=== PATIENT | female | born 1980 | race Caucasian/White ===

== ENCOUNTER 2016-10-18 15:33 | Emergency (ER) | payer OTHER ==
[~2016-10-18] VITALS: Ht 154.9 cm; Wt 81.6 kg
[2016-10-18] MEDS ORDERED: IV NORMAL SALINE 1,000ML 1,000 ML IV ONE (16:10)
[2016-10-18 16:51] LABS: BASO % 0 % (0-3); EOS # 0.1 x10^3/uL (0.0-0.7); EOS % 1 % (0-3); HEMATOCRIT 41.3 % (36.0-47.0); HEMOGLOBIN 14.3 g/dL (12.0-15.5); LYMPH # 2.8 x10^3/uL (1.0-4.8); LYMPH % 44 % (24-48); MEAN CORPUSCULAR HEMOGLOBIN 32 pg (25-35); MEAN CORPUSCULAR HGB CONC 35 g/dL (31-37); MEAN CORPUSCULAR VOLUME 91 fL (79-100); MONO # 0.5 x10^3/uL (0.0-1.1); MONO % 7 % (0-9); NEUT # 3.1 x10^3uL (1.8-7.7); NEUT % 48 % (31-73); PLATELET COUNT 196 x10^3/uL (140-400); RED BLOOD COUNT 4.56 x10^6/uL (3.50-5.40); RED CELL DISTRIBUTION WIDTH 14.3 % (11.5-14.5); WHITE BLOOD COUNT 6.5 x10^3/uL (4.0-11.0)
[2016-10-18 17:00] LABS: ALBUMIN/GLOBULIN RATIO 1.3 (1.0-1.7); CALCIUM 8.7 mg/dL (8.5-10.1); CREATININE 0.7 mg/dL (0.6-1.0); GFR 95.8; POTASSIUM 3.6 mmol/L (3.5-5.1); TOTAL BILIRUBIN 0.6 mg/dL (0.2-1.0); TOTAL PROTEIN 7.2 g/dL (6.4-8.2)
[2016-10-18] MEDS ORDERED: LORazepam 2 MG/ML VIAL IV ONE (17:00)
--- NOTE | 2016-10-18 17:13 | EKG ---
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
--- NOTE | 2016-10-18 17:54 | ED.ADGEN ---
Past History Past Medical History: Anxiety Past Surgical History: Tubal ligation Smoking: Non-smoker Alcohol Use: None Drug Use: None Adult General Chief Complaint Chief Complaint Chest pain and anxiety hyperventilation HPI HPI Patient is a 36 year old female who presents with onset of some vague chest discomfort substernal does not radiate to the arm or leg she was hyperventilating and had some numbness in her legs this was sudden onset just prior to arrival she said she's had this numerous times to always been her anxiety but she was concerned so came in anyways. At this time she is much more calm but is still slightly anxious she denies any pain or swelling to her legs no prior history of DVT or PE. No prior workup or evaluation for heart Review of Systems Review of Systems Constitutional: Denies fever or chills [] Eyes: Denies change in visual acuity, redness, or eye pain [] HENT: Denies nasal congestion or sore throat [] Respiratory: Denies cough or shortness of breath [] Cardiovascular: No additional information not addressed in HPI [] GI: Denies abdominal pain, nausea, vomiting, bloody stools or diarrhea [] : Denies dysuria or hematuria [] Musculoskeletal: Denies back pain or joint pain [] Integument: Denies rash or skin lesions [] Neurologic: Denies headache, focal weakness or sensory changes [] Endocrine: Denies polyuria or polydipsia [] Current Medications Current Medications Current Medications Medications (Trade) Dose Ordered Sig/Billy Start Time Stop Time Status Last Admin Dose Admin Lorazepam (Ativan) 1 mg 1X ONCE 10/18/16 17:00 10/18/16 17:01 DC 10/18/16 17:00 1 MG Sodium Chloride 1,000 ml @ 1,000 mls/hr 1X ONCE 10/18/16 16:10 10/18/16 17:09 DC 10/18/16 16:00 1,000 MLS/HR Allergies Allergies Allergies Coded Allergies Type Severity Reaction Last Updated Verified No Known Drug Allergies 10/18/16 No Physical Exam Physical Exam Constitutional: Well developed, well nourished, no acute distress, non-toxic appearance. [] HENT: Normocephalic, atraumatic, bilateral external ears normal, oropharynx moist, no oral exudates, nose normal. [] Eyes: PERRLA, EOMI, conjunctiva normal, no discharge. [] Neck: Normal range of motion, no tenderness, supple, no stridor. [] Cardiovascular:Heart rate regular rhythm, no murmur [] Lungs & Thorax: Bilateral breath sounds clear to auscultation [] Abdomen: Bowel sounds normal, soft, no tenderness, no masses, no pulsatile masses. [] Skin: Warm, dry, no erythema, no rash. [] Back: No tenderness, no CVA tenderness. [] Extremities: No tenderness, no cyanosis, no clubbing, ROM intact, no edema. [] Neurologic: Alert and oriented X 3, normal motor function, normal sensory function, no focal deficits noted. [] Psychologic: Affect normal, judgement normal, mood normal. [] Current Patient Data Lab Results Laboratory Tests Test 10/18/16 16:00 White Blood Count 6.5 x10^3/uL (4.0-11.0) Red Blood Count 4.56 x10^6/uL (3.50-5.40) Hemoglobin 14.3 g/dL (12.0-15.5) Hematocrit 41.3 % (36.0-47.0) Mean Corpuscular Volume 91 fL (79-100) Mean Corpuscular Hemoglobin 32 pg (25-35) Mean Corpuscular Hemoglobin Concent 35 g/dL (31-37) Red Cell Distribution Width 14.3 % (11.5-14.5) Platelet Count 196 x10^3/uL (140-400) Neutrophils (%) (Auto) 48 % (31-73) Lymphocytes (%) (Auto) 44 % (24-48) Monocytes (%) (Auto) 7 % (0-9) Eosinophils (%) (Auto) 1 % (0-3) Basophils (%) (Auto) 0 % (0-3) Neutrophils # (Auto) 3.1 x10^3uL (1.8-7.7) Lymphocytes # (Auto) 2.8 x10^3/uL (1.0-4.8) Monocytes # (Auto) 0.5 x10^3/uL (0.0-1.1) Eosinophils # (Auto) 0.1 x10^3/uL (0.0-0.7) Basophils # (Auto) 0.0 x10^3/uL (0.0-0.2) D-Dimer (Jessie) 0.46 mg/L (0.00-0.50) Sodium Level 137 mmol/L (136-145) Potassium Level 3.6 mmol/L (3.5-5.1) Chloride Level 104 mmol/L (98-107) Carbon Dioxide Level 22 mmol/L (21-32) Anion Gap 11 (6-14) Blood Urea Nitrogen 10 mg/dL (7-20) Creatinine 0.7 mg/dL (0.6-1.0) Estimated GFR (Cockcroft-Gault) 95.8 BUN/Creatinine Ratio 14 (6-20) Glucose Level 89 mg/dL (70-99) Calcium Level 8.7 mg/dL (8.5-10.1) Total Bilirubin 0.6 mg/dL (0.2-1.0) Aspartate Amino Transferase (AST) 17 U/L (15-37) Alanine Aminotransferase (ALT) 21 U/L (14-59) Alkaline Phosphatase 80 U/L (46-116) Troponin I Quantitative < 0.017 ng/mL (0-0.055) Total Protein 7.2 g/dL (6.4-8.2) Albumin 4.0 g/dL (3.4-5.0) Albumin/Globulin Ratio 1.3 (1.0-1.7) EKG EKG Sinus rhythm rate of 59 no STEMI QTC normal my interpretation at 1651 [] Radiology/Procedures Radiology/Procedures Chest x-ray negative my interpretation and review [] Course & Med Decision Making Course & Med Decision Making Pertinent Labs and Imaging studies reviewed. (See chart for details) Patient was given IV fluids and Ativan and feels improved. [] Final Impression Final Impression Nonspecific chest pain, anxiety [] Problems: Dragon Disclaimer Dragon Disclaimer This electronic medical record was generated, in whole or in part, using a voice recognition dictation system. MITRA SANCHEZ MD Oct 18, 2016 17:54
[2016-10-18 18:30] VITALS: BP 153/107
--- NOTE | 2016-10-19 08:03 | RAD ---
Portable chest, 10/18/2016: History: Left-sided chest pain, smoker The heart size and pulmonary vascularity are normal. No pulmonary infiltrates are seen. There is no evidence of pleural fluid. IMPRESSION: No acute cardiopulmonary abnormality is detected.
== END 2016-10-18 18:35 | disposition home or self-care (01) ==
LOC: ER 15:33
DX: R07.89 Other chest pain (principal); F41.9 Anxiety disorder, unspecified; R06.4 Hyperventilation
CPT/HCPCS: 36415; 71010; 80053; 84484; 85027; 85379; 93005; 96361; 96374; 99285; J2060; J7030

== ENCOUNTER 2017-09-01 17:56 | Emergency (ER) | payer SELFPAY ==
[~2017-09-01] VITALS: Ht 154.9 cm; Wt 81.6 kg
--- NOTE | 2017-09-01 18:20 | EKG ---
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
--- NOTE | 2017-09-01 18:26 | ED.ADGEN ---
Past History Past Medical History: Anxiety Past Surgical History: Tubal ligation Smoking: Non-smoker Alcohol Use: None Drug Use: None Adult General Chief Complaint Chief Complaint ". I having maybe a anxiety attack.. I worried.. I may be having a heart attack.. I am having chest pain.. " HPI HPI Patient is a 37 year old female who presents with history of pleuritic chest pain, increased dyspnea, wheezing and cough. Patient denies any specific ill contacts. Patient denies any history of immunosuppression. Patient denies any productive sputum. Patient does have a history of hypertension. Patient denies previous MIs. Patient does continue to smoke. Patient [facility]. Patient has not been compliant with her hypertensive meds. Review of Systems Review of Systems Constitutional: Denies fever or chills [] Eyes: Denies change in visual acuity, redness, or eye pain [] HENT: Denies nasal congestion or sore throat [] Respiratory: Complaints cough or shortness of breath [] Cardiovascular: No additional information not addressed in HPI [] GI: Denies abdominal pain, nausea, vomiting, bloody stools or diarrhea [] : Denies dysuria or hematuria [] Musculoskeletal: Denies back pain or joint pain [] Integument: Denies rash or skin lesions [] Neurologic: Denies headache, focal weakness or sensory changes [] Endocrine: Denies polyuria or polydipsia [] All other systems were reviewed and found to be within normal limits, except as documented in this note. Family History Family History Noncontributory Current Medications Current Medications Current Medications Medications (Trade) Dose Ordered Sig/Billy Start Time Stop Time Status Last Admin Dose Admin Albuterol Sulfate (Ventolin Hfa) 2 puff 1X ONCE 09/02/17 01:00 09/02/17 01:01 DC 09/02/17 00:58 2 PUFF Cephalexin HCl (Keflex) 500 mg 1X ONCE 09/02/17 01:00 09/02/17 01:01 DC 09/02/17 01:00 500 MG Clonidine HCl (Catapres Tts-2) 1 patch 1X ONCE 09/02/17 01:00 09/02/17 01:01 DC 09/02/17 00:59 1 PATCH Info (Do NOT chart on this entry -- for MONITORING) 1 each PRN DAILY PRN 09/01/17 21:30 09/02/17 01:12 DC Iohexol (Omnipaque 300 Mg/ml) 75 ml 1X ONCE 09/01/17 21:30 09/01/17 21:31 DC 09/01/17 22:05 75 ML Lactated Ringer's 1,000 ml @ 1,000 mls/hr 1X ONCE 09/01/17 21:00 09/01/17 21:59 DC Lorazepam (Ativan) 2 mg 1X ONCE 09/01/17 22:00 09/01/17 22:01 DC 09/01/17 22:22 2 MG Prednisone (Prednisone) 50 mg 1X ONCE 09/02/17 01:00 09/02/17 01:01 DC 09/02/17 00:59 50 MG Allergies Allergies Allergies Coded Allergies Type Severity Reaction Last Updated Verified No Known Drug Allergies 10/18/16 No Physical Exam Physical Exam Constitutional: In acute emotional distress distress, non-toxic appearance. [] HENT: Normocephalic, atraumatic, bilateral external ears normal, oropharynx moist, no oral exudates, nose normal. [] Eyes: PERRLA, EOMI, conjunctiva normal, no discharge. [] Neck: Normal range of motion, no tenderness, supple, no stridor. [] Cardiovascular:Heart rate regular rhythm, no murmur [] Lungs & Thorax: Bilateral breath sounds equal with scattered wheezes on auscultation [] Abdomen: Bowel sounds normal, soft, no tenderness, no masses, no pulsatile masses. [] Old surgery scar. Obese. Skin: Warm, dry, no erythema, no rash. [] Back: No tenderness, no CVA tenderness. [] Extremities: No tenderness, no cyanosis, no clubbing, ROM intact, no edema. [] No cording noted Neurologic: Alert and oriented X 3, normal motor function, normal sensory function, no focal deficits noted. [] Psychologic: Affect very anxious, judgement normal, mood normal. [] Current Patient Data Vital Signs Vital Signs Date Time Temp Pulse Resp B/P (MAP) Pulse Ox O2 Delivery O2 Flow Rate FiO2 09/02/17 01:10 93 20 164/108 (126) 98 Room Air 09/01/17 18:03 98.3 Lab Results Laboratory Tests Test 09/01/17 18:52 09/01/17 21:00 White Blood Count 4.2 x10^3/uL (4.0-11.0) Red Blood Count 4.26 x10^6/uL (3.50-5.40) Hemoglobin 13.1 g/dL (12.0-15.5) Hematocrit 38.0 % (36.0-47.0) Mean Corpuscular Volume 89 fL (79-100) Mean Corpuscular Hemoglobin 31 pg (25-35) Mean Corpuscular Hemoglobin Concent 35 g/dL (31-37) Red Cell Distribution Width 13.9 % (11.5-14.5) Platelet Count 201 x10^3/uL (140-400) Neutrophils (%) (Auto) 51 % (31-73) Lymphocytes (%) (Auto) 38 % (24-48) Monocytes (%) (Auto) 9 % (0-9) Eosinophils (%) (Auto) 1 % (0-3) Basophils (%) (Auto) 0 % (0-3) Neutrophils # (Auto) 2.2 x10^3uL (1.8-7.7) Lymphocytes # (Auto) 1.6 x10^3/uL (1.0-4.8) Monocytes # (Auto) 0.4 x10^3/uL (0.0-1.1) Eosinophils # (Auto) 0.0 x10^3/uL (0.0-0.7) Basophils # (Auto) 0.0 x10^3/uL (0.0-0.2) Prothrombin Time 11.2 SEC (9.4-11.4) Prothrombin Time INR 1.1 (0.9-1.1) PTT 28 SEC (23-33) D-Dimer (Jessie) 0.52 mg/L (0.00-0.50) H Sodium Level 140 mmol/L (136-145) Potassium Level 3.4 mmol/L (3.5-5.1) L Chloride Level 105 mmol/L (98-107) Carbon Dioxide Level 25 mmol/L (21-32) Anion Gap 10 (6-14) Blood Urea Nitrogen 9 mg/dL (7-20) Creatinine 0.8 mg/dL (0.6-1.0) Estimated GFR (Cockcroft-Gault) 81.6 Glucose Level 89 mg/dL (70-99) Calcium Level 8.8 mg/dL (8.5-10.1) Total Bilirubin 0.4 mg/dL (0.2-1.0) Direct Bilirubin 0.1 mg/dL (0.0-0.2) Aspartate Amino Transferase (AST) 12 U/L (15-37) L Alanine Aminotransferase (ALT) 18 U/L (14-59) Alkaline Phosphatase 59 U/L (46-116) Creatine Kinase 77 U/L (26-192) Creatine Kinase MB (Mass) 0.5 ng/mL (0.0-3.6) Creatine Kinase MB Relative Index 0.6 % (0-4) Troponin I Quantitative < 0.017 ng/mL (0-0.055) Total Protein 6.9 g/dL (6.4-8.2) Albumin 3.9 g/dL (3.4-5.0) Urine Collection Type Unknown Urine Color Straw Urine Clarity Clear Urine pH 7.5 Urine Specific [place] 1.015 Urine Protein Neg (NEG-TRACE) Urine Glucose (UA) Neg mg/dL (NEG) Urine Ketones (Stick) 40 mg/dL (NEG) Urine Blood Mod (NEG) Urine Nitrite Neg (NEG) Urine Bilirubin Neg (NEG) Urine Urobilinogen Dipstick 0.2 mg/dL (0.2 mg/dL) Urine Leukocyte Esterase Neg (NEG) Urine RBC Occ /HPF (0-2) Urine WBC Occ /HPF (0-4) Urine Squamous Epithelial Cells Occ /LPF Urine Bacteria 0 /HPF (0-FEW) Urine Opiates Screen Neg (NEG) Urine Methadone Screen Neg (NEG) Urine Barbiturates Neg (NEG) Urine Phencyclidine Screen Neg (NEG) Urine Amphetamine/Methamphetamine Neg (NEG) Urine Benzodiazepines Screen Pos (NEG) Urine Cocaine Screen Neg (NEG) Urine Cannabinoids Screen Pos (NEG) Urine Ethyl Alcohol Neg (NEG) EKG EKG My interpretation EKG shows a sinus rhythm at 79 bpm. No findings of acute STEMI with contralateral changes[] Radiology/Procedures Radiology/Procedures My interpretation chest x-ray shows no acute cardiopulmonary findings. Does have somewhat enlarged cardiac silhouette. CT chest shows no significant large vessel pulmonary embolism. Does have peribronchial cuffing consistent with bronchitis.[] Course & Med Decision Making Course & Med Decision Making Pertinent Labs and Imaging studies reviewed. (See chart for details). Patient take a daily aspirin. Patient to stop smoking. Patient to follow-up primary care. Patient take Keflex 500 mg 3 times a day. Prednisone 50 mg a day. MDI 2 puffs 4 times a day. Return if any concerns. Patient to take metoprolol 25 mg twice day. Must follow-up. [] Final Impression Final Impression 1. Chest Pain 2. Bronchitis 3. Tobacco and marijuana abuse 4. HTN 5. Elevated D-dimer [] Problems: Dragon Disclaimer Dragon Disclaimer This electronic medical record was generated, in whole or in part, using a voice recognition dictation system. FANY COLÓN MD Sep 01, 2017 18:26
[2017-09-01] MEDS ORDERED: IV RINGERS SOLUTION,LACTATED 1,000 ML IV SCH (19:00)
[2017-09-01 19:22] LABS: BASO % 0 % (0-3); EOS % 1 % (0-3); HEMOGLOBIN 13.1 g/dL (12.0-15.5); LYMPH # 1.6 x10^3/uL (1.0-4.8); LYMPH % 38 % (24-48); MEAN CORPUSCULAR HEMOGLOBIN 31 pg (25-35); MEAN CORPUSCULAR HGB CONC 35 g/dL (31-37); MEAN CORPUSCULAR VOLUME 89 fL (79-100); MONO # 0.4 x10^3/uL (0.0-1.1); MONO % 9 % (0-9); NEUT # 2.2 x10^3uL (1.8-7.7); NEUT % 51 % (31-73); PLATELET COUNT 201 x10^3/uL (140-400); RED BLOOD COUNT 4.26 x10^6/uL (3.50-5.40); RED CELL DISTRIBUTION WIDTH 13.9 % (11.5-14.5); WHITE BLOOD COUNT 4.2 x10^3/uL (4.0-11.0)
[2017-09-01 19:49] LABS: ALBUMIN 3.9 g/dL (3.4-5.0); CALCIUM 8.8 mg/dL (8.5-10.1); CREATININE 0.8 mg/dL (0.6-1.0); DIRECT BILIRUBIN 0.1 mg/dL (0.0-0.2); GFR 81.6; POTASSIUM 3.4 mmol/L (3.5-5.1); TOTAL BILIRUBIN 0.4 mg/dL (0.2-1.0); TOTAL PROTEIN 6.9 g/dL (6.4-8.2)
[2017-09-01] MEDS ORDERED: IV RINGERS SOLUTION,LACTATED 1,000 ML IV ONE (21:00)
[2017-09-01 21:25] LABS: BARBITURATES NEG (NEG); BENZODIAZEPINES POS (NEG); CANNABINOIDS POS (NEG); COCAINE NEG (NEG); METHADONE NEG (NEG); OPIATES NEG (NEG); PHENCYCLIDINE NEG (NEG)
[2017-09-01] MEDS ORDERED: IOHEXOL 300 MG/ML 75 ML VIAL. IV ONE (21:30)
[2017-09-01] MEDS ORDERED: CONTRAST GIVEN MC PRN (21:30)
[2017-09-01 21:33] LABS: BACTERIA,URINE 0 /HPF (0-FEW); BILIRUBIN,URINE NEG (NEG); CLARITY,URINE CLEAR; COLOR,URINE STRAW; GLUCOSE,URINE NEG (NEG); NITRITE,URINE NEG (NEG); RBC,URINE OCC /HPF (0-2); SQUAMOUS EPITHELIAL CELL,UR OCC /LPF; UROBILINOGEN,URINE 0.2 mg/dL (0.2 mg/dL); WBC,URINE OCC /HPF (0-4)
[2017-09-01 21:54] LABS: AMPHETAMINE/METHAMPHETAMINE NEG (NEG)
[2017-09-01] MEDS ORDERED: LORazepam 1 MG TABLET PO ONE (22:00)
--- NOTE | 2017-09-01 22:38 | RAD ---
CT CHEST WITH CONTRAST, PULMONARY ANGIOGRAM History: Chest pain, dyspnea, elevated d-dimer Comparison: Chest radiograph same day Technique: Helical CT of the chest was performed after the administration of 75 cc of Omnipaque 300 intravenous contrast according to PE protocol. Sagittal and coronal MIP reconstructions were obtained. Findings: Limited evaluation of the distal pulmonary arterial system due to suboptimal distal contrast opacification. No evidence of central, lobar or segmental pulmonary embolism. The thyroid is symmetric. Prominent mediastinal and right hilar lymph nodes do not meet CT criteria for enlargement. No axillary adenopathy. Ascending thoracic aorta dilatation measuring up to 4.1 cm. Mild cardiomegaly. There is no pericardial effusion. The central airways are patent. There is no suspicious pulmonary nodule or mass. There is no focal consolidation. No pleural effusion is observed. There is no pneumothorax. Mild peribronchial thickening. The visualized upper abdomen is unremarkable. No acute osseous abnormality. IMPRESSION: 1. Limited evaluation of the distal pulmonary arterial system due to suboptimal distal contrast opacification. No evidence of central, lobar or segmental pulmonary embolism. 2. Ascending aortic dilatation measuring up to 4.1 cm. 3. Mild cardiomegaly. 4. Mild peribronchial thickening, a nonspecific finding which can be seen with bronchitis. PQRS Compliance Statement: One or more of the following individualized dose reduction techniques were utilized for this examination: 1. Automated exposure control 2. Adjustment of the mA and/or kV according to patient size 3. Use of iterative reconstruction technique Electronically signed by: Khalif Hughes MD (09/01/2017 10:35 PM) [facility]
[2017-09-02] MEDS ORDERED: PRED50TA PO (00:35)
[2017-09-02] MEDS ORDERED: CEPH-264 PO (00:35)
[2017-09-02] MEDS ORDERED: METO50TA6 PO (00:41)
[2017-09-02] MEDS ORDERED: CEPHALEXIN 250 MG CAPSULE PO ONE (01:00)
[2017-09-02] MEDS ORDERED: ALBUTEROL SULFATE 8GM INHALER. INH ONE (01:00)
[2017-09-02] MEDS ORDERED: cloNIDine TTS-2 1 PATCH PATCH TD ONE (01:00)
[2017-09-02] MEDS ORDERED: predniSONE 20 MG TABLET PO ONE (01:00)
[2017-09-02 01:10] VITALS: BP 164/108
--- NOTE | 2017-09-02 09:25 | RAD ---
CHEST PA LATERAL Clinical Indication: dyspnea, tachycardia, history of panic attacks/anxiety Comparison: Chest radiograph dated 10/18/2016 Findings: Normal lung volume. No focal consolidations. Normal pulmonary vasculature. No pleural effusion or pneumothorax. The cardiomediastinal silhouette and great vessels are normal. No acute osseous abnormality. IMPRESSION: No acute cardiopulmonary process.
== END 2017-09-02 01:10 | disposition home or self-care (01) ==
LOC: ER 17:56
DX: J40 Bronchitis, not specified as acute or chronic (principal); R07.81 Pleurodynia; I10 Essential (primary) hypertension; F12.10 Cannabis abuse, uncomplicated; R79.1 Abnormal coagulation profile; Z72.0 Tobacco use; F41.9 Anxiety disorder, unspecified
CPT/HCPCS: 36415; 71046; 71275; 80048; 80076; 80307; 81001; 82553; 84484; 85025; 85379; 85610; 85730; 93005; 94640; 99285; J7120; J7512; J7613; Q9967; G0479

== ENCOUNTER → 2019-02-12 | Outpatient (CLI) | payer OTHER ==
[~2019-02-12] MED LIST: CEPH-264 PO; METO50TA6 PO; PRED50TA PO
--- NOTE | 2019-02-12 10:56 | RAD ---
EXAM: Lumbar spine, 6 views. HISTORY: Pain. COMPARISON: None. FINDINGS: Frontal, lateral, bilateral oblique, and coned sacral views of the lumbar spine are obtained. There is no listhesis. The vertebral bodies are normal in height. There is degenerative endplate remodeling with disc space narrowing and vacuum phenomenon at L5-S1. IMPRESSION: 1. Degenerative change at L5-S1. 2. No acute osseous finding. Electronically signed by: Poornima Trevino MD (02/12/2019 10:52 AM) [facility]
== END | disposition home or self-care (01) ==
LOC: PMG 10:09
PROVIDERS: ATTEND Registered Nurse
DX: M47.897 Other spondylosis, lumbosacral region (principal); M48.07 Spinal stenosis, lumbosacral region
CPT/HCPCS: 72110

== ENCOUNTER → 2019-02-18 | Outpatient (CLI) | payer OTHER ==
[2019-02-18 09:28] LABS: BACTERIA,URINE FEW /HPF (0-FEW); BILIRUBIN,URINE NEG (NEG); CLARITY,URINE HAZY; COLOR,URINE YELLOW; GLUCOSE,URINE NEG (NEG); NITRITE,URINE NEG (NEG); SQUAMOUS EPITHELIAL CELL,UR MOD /LPF; UROBILINOGEN,URINE 0.2 mg/dL (0.2 mg/dL)
[2019-02-18 10:05] LABS: BASO % 1 % (0-3); EOS # 0.2 x10^3/uL (0.0-0.7); EOS % 2 % (0-3); HEMATOCRIT 40.3 % (36.0-47.0); HEMOGLOBIN 13.5 g/dL (12.0-15.5); LYMPH # 2.5 x10^3/uL (1.0-4.8); LYMPH % 35 % (24-48); MEAN CORPUSCULAR HEMOGLOBIN 31 pg (25-35); MEAN CORPUSCULAR HGB CONC 34 g/dL (31-37); MEAN CORPUSCULAR VOLUME 91 fL (79-100); MONO # 0.4 x10^3/uL (0.0-1.1); MONO % 6 % (0-9); NEUT # 3.9 x10^3uL (1.8-7.7); NEUT % 55 % (31-73); PLATELET COUNT 216 x10^3/uL (140-400); RED BLOOD COUNT 4.44 x10^6/uL (3.50-5.40); WHITE BLOOD COUNT 7.1 x10^3/uL (4.0-11.0)
[2019-02-18 10:18] LABS: ALBUMIN 3.7 g/dL (3.4-5.0); ALBUMIN/GLOBULIN RATIO 1.2 (1.0-1.7); CALCIUM 8.8 mg/dL (8.5-10.1); CREATININE 0.8 mg/dL (0.6-1.0); GFR 81.2; POTASSIUM 4.3 mmol/L (3.5-5.1); TOTAL BILIRUBIN 0.2 mg/dL (0.2-1.0); TOTAL PROTEIN 6.9 g/dL (6.4-8.2)
[2019-02-18 14:08] LABS: FREE T4 0.79 ng/dL (0.76-1.46); THYROID STIM HORMONE (TSH) 5.756 uIU/mL (0.358-3.740)
--- NOTE | 2019-02-18 17:04 | RAD ---
Sonography of the neck Clinical indications: Multiple lumps of the left side of the neck for months. FINDINGS: High-resolution sonography of the left side neck was performed which demonstrates multiple lymph nodes which demonstrate normal lymph node sonographic architecture at this point in time. The largest lymph node measures 14 mm within the lateral aspect of the left side of the neck. IMPRESSION: Lymph nodes are seen within the left side of the neck which demonstrate normal lymph node sonographic architecture. Recommend continued clinical follow-up with regard to any growth in size. Electronically signed by: Sami Goins MD (02/18/2019 5:02 PM) [place] [id number]
--- NOTE | 2019-02-18 17:08 | RAD ---
Clinical indications: New onset of uncontrolled hypertension. Smoker. Frequent urinary tract infections.. Renal artery stenosis. Evaluation for renal scarring/atrophy. . Findings: Duplex sonography including torres scale and color flow and spectral waveform analysis of the renal arteries and veins was performed. The peak systolic flow velocity of the right main renal artery is: Proximal: 76cm/sec Mid aspect: 118 cm/sec Distal: 164 cm/sec The peak systolic flow velocity of the left main renal artery is: Proximal: Not visualized due to bowel gas Midaspect: Not visualized due to bowel gas Distal: 55 cm/sec The peak systolic flow velocity of the abdominal aorta is 77 cm/sec. Therefore, the renal artery/aortic ratio on the right side is 2.1. Therefore, the renal artery/aortic ratio on the left side is 0.7. Color-Doppler flow is identified within the right main renal vein. Color-Doppler flow is identified within the left main renal vein. The longitudinal dimension of the right kidney is 9.8 cm. No hydronephrosis is seen. The longitudinal dimension of the left kidney is 10.1 cm. No hydronephrosis is seen. The average resistive index of the right kidney is 0.5. The average resistive index of the left kidney is 0.5. Urinary bladder is mildly distended. No intraluminal echodensities or masses are seen. Impression: 1. Limited study on the left side due to overlying bowel gas. No hemodynamically significant plaque formation or flow-limiting stenosis is seen otherwise. 2. No significant renal atrophy is seen on either side. Electronically signed by: Sami Goins MD (02/18/2019 5:05 PM) [facility]
--- NOTE | 2019-02-18 17:11 | RAD ---
Transabdominal and transvaginal sonography of the pelvis Clinical indications: Irregular menses. Pelvic pain and cramps. Transabdominal sonography: The uterus is anteverted in position. The longitudinal and AP and transverse dimensions of the uterus are 9.1 cm and 4.9 cm and 5.7 cm respectively. The endometrial canal is poorly visualized. Therefore, transvaginal sonography will be performed. In addition, neither ovary is visualized. No free fluid is evident. Transvaginal sonography: The endometrial canal measures 2.3 mm in thickness which is normal. No uterine mass or fibroid is evident. A nabothian cyst is seen. The left ovary measures 1.8 cm and 2.5 cm and 2.6 m in size and is normal. Color Doppler flow is seen within left ovary. The right ovary measures 2.5 cm and 2.3 cm and 2.1 cm in size and is normal. Color Doppler flow is seen within the right ovary. No adnexal mass or free fluid is evident. IMPRESSION: Unremarkable study. Electronically signed by: Sami Goins MD (02/18/2019 5:08 PM) [place] [id number]
[2019-02-18 18:10] LABS: DHEA SO4 128.2 ug/dL (57.3-279.2); ESTRADIOL LEVEL 122.9 pg/mL (.); FSH 9.1 mIU/mL (.); LUTEINIZING HORMONE 16.6 mIU/mL (.); PROGESTERONE 4.2 ng/mL (.); T3 TOTAL 154 ng/dL (71-180)
[2019-02-19 00:10] LABS: HEMOGLOBIN A1C 5.1 % (4.8-5.6)
[2019-02-21 04:08] LABS: ESTROGEN LEVEL 219 pg/mL (.)
[2019-02-21 09:13] LABS: TESTOSTERONE FREE 0.22 ng/dL (0.10-0.85); TESTOSTERONE TOTAL 21 ng/dL (8-48)
== END | disposition home or self-care (01) ==
LOC: US 08:28
PROVIDERS: ATTEND Registered Nurse
DX: N88.8 Other specified noninflammatory disorders of cervix uteri (principal); N32.89 Other specified disorders of bladder; I70.1 Atherosclerosis of renal artery; R59.0 Localized enlarged lymph nodes; I10 Essential (primary) hypertension; Z87.440 Personal history of urinary (tract) infections; Z86.2 Personal history of diseases of the blood and blood-forming organs and certain disorders involving the immune mechanism; Z83.3 Family history of diabetes mellitus
CPT/HCPCS: 36415; 76536; 76770; 76830; 76856; 80053; 80061; 81001; 82607; 82627; 82670; 82672; 82728; 82746; 83001; 83002; 83036; 83540; 83550; 84144; 84402; 84403; 84439; 84443; 84480; 85025; 87086

== ENCOUNTER → 2019-03-31 | Outpatient (CLI) | payer OTHER ==
--- NOTE | 2019-03-31 14:54 | RAD ---
EXAM: Soft tissue ultrasound left back. HISTORY: Palpable foci lower back. COMPARISON: None. FINDINGS: Sonographic evaluation of the sites of concern along the lower back was performed. At the more inferior site of concern, there is a 9 x 5 mm nodule with echogenicity consistent with subcutaneous fat. There is no internal perfusion on Doppler. At the more superior site of concern, only normal subcutaneous tissues are identified. There is no suspicious finding. IMPRESSION: 1. The more inferior site of concern may be a 9 mm lipoma versus a lobule of normal fat. Only normal subcutaneous fat is seen at the more superior site. There is no suspicious sonographic finding. Recommend ongoing clinical follow-up of palpable foci to ensure stability. Electronically signed by: Ray Kimball MD (03/31/2019 2:51 PM) [place] [id number]
== END | disposition home or self-care (01) ==
LOC: US 10:43
PROVIDERS: ATTEND Registered Nurse
DX: R22.2 Localized swelling, mass and lump, trunk (principal)
CPT/HCPCS: 76881

== ENCOUNTER 2020-07-12 09:01 | Emergency (ER) | payer OTHER ==
[~2020-07-12] VITALS: Ht 152.4 cm; Wt 78.5 kg
--- NOTE | 2020-07-12 09:21 | EKG ---
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
[2020-07-12 09:40] LABS: BASO % 1 % (0-3); EOS # 0.2 x10^3/uL (0.0-0.7); EOS % 3 % (0-3); HEMATOCRIT 40.3 % (36.0-47.0); HEMOGLOBIN 13.5 g/dL (12.0-15.5); LYMPH # 2.5 x10^3/uL (1.0-4.8); LYMPH % 38 % (24-48); MEAN CORPUSCULAR HEMOGLOBIN 30 pg (25-35); MEAN CORPUSCULAR HGB CONC 34 g/dL (31-37); MEAN CORPUSCULAR VOLUME 91 fL (79-100); MONO # 0.4 x10^3/uL (0.0-1.1); MONO % 6 % (0-9); NEUT # 3.4 x10^3uL (1.8-7.7); NEUT % 52 % (31-73); PLATELET COUNT 218 x10^3/uL (140-400); RED BLOOD COUNT 4.43 x10^6/uL (3.50-5.40); RED CELL DISTRIBUTION WIDTH 13.6 % (11.5-14.5); WHITE BLOOD COUNT 6.5 x10^3/uL (4.0-11.0)
[2020-07-12 09:52] LABS: CALCIUM 8.7 mg/dL (8.5-10.1); CREATININE 0.7 mg/dL (0.6-1.0); GFR 93.6; POTASSIUM 4.6 mmol/L (3.5-5.1)
[2020-07-12 09:52] LABS: BARBITURATES NEG (NEG); BENZODIAZEPINES POS (NEG); CANNABINOIDS POS (NEG); COCAINE NEG (NEG); METHADONE NEG (NEG); OPIATES NEG (NEG); PHENCYCLIDINE NEG (NEG)
[2020-07-12 09:54] LABS: PREG TEST PT QUAL NEGATIVE (NEG)
[2020-07-12 09:56] LABS: AMPHETAMINE/METHAMPHETAMINE NEG (NEG)
[2020-07-12 09:59] LABS: ALBUMIN 3.6 g/dL (3.4-5.0); ALBUMIN/GLOBULIN RATIO 1.1 (1.0-1.7); MAGNESIUM 1.9 mg/dL (1.8-2.4); TOTAL BILIRUBIN 0.2 mg/dL (0.2-1.0); TOTAL PROTEIN 6.8 g/dL (6.4-8.2)
--- NOTE | 2020-07-12 10:06 | RAD ---
EXAM: CHEST 1 VIEW History: Dizziness COMPARISON: 09/01/2017 TECHNIQUE: Single portable radiograph of the chest FINDINGS: The cardiac silhouette is unremarkable. The lungs are clear bilaterally. The costophrenic sulci are clear and well demarcated. . IMPRESSION: No radiographic evidence of an acute cardiopulmonary process. Electronically signed by: Richar Baez MD (07/12/2020 10:04 AM) [id number]
[2020-07-12 10:08] LABS: BILIRUBIN,URINE NEG (NEG); CLARITY,URINE HAZY; COLOR,URINE YELLOW; GLUCOSE,URINE NEG (NEG); NITRITE,URINE NEG (NEG); UROBILINOGEN,URINE 0.2 mg/dL (0.2 mg/dL)
[2020-07-12 10:09] LABS: BACTERIA,URINE MOD /HPF (0-FEW); SQUAMOUS EPITHELIAL CELL,UR MOD /LPF; YEAST,URINE PRESENT /HPF
--- NOTE | 2020-07-12 10:32 | RAD ---
EXAM: Head CT without contrast; orbital CT without contrast. HISTORY: Dizziness. Blurred vision. TECHNIQUE: Computed tomographic images of the head and orbits were obtained without contrast. *One or more of the following individualized dose reduction techniques were utilized for this examina tion: 1. Automated exposure control. 2. Adjustment of the mA and/or kV according to patient size. 3. Use of iterative reconstruction technique. COMPARISON: None. FINDINGS: There is no acute or subacute extra-axial or intraparenchymal hemorrhage. There is no mass effect or midline shift. There is no hydrocephalus. The torres-white matter differentiation pattern is intact. The calvarium is unremarkable. The mastoid air cells are clear. The orbits are unremarkable. There is mild bilateral maxillary sinus mucosal thickening. There is sli ght attenuation of the left ostiomeatal unit. There is rightward nasal septal deviation. IMPRESSION: 1. No acute intracranial finding. 2. Unremarkable orbital CT. Electronically signed by: Poornima Trevino MD (07/12/2020 10:29 AM) [id number]
[2020-07-12 10:37] LABS: MONONUCLEOSIS PATIENT NEGATIVE (NEGATIVE)
[2020-07-12 11:47] VITALS: BP 143/76
[2020-07-12] MEDS ORDERED: NITR100C62 PO (12:02)
--- NOTE | 2020-07-12 12:03 | PHYS DOC ---
Past History Past Medical History: Anxiety, Hypertension, Other Additional Past Medical Histor: ENLARGED HEART Past Surgical History: , Other Additional Past Surgical Histo: D&C Smoking: Non-smoker Alcohol Use: Occasionally Drug Use: Marijuana General Adult EDM: Chief Complaint: DIZZY/LIGHT HEADED HPI: HPI: 32-year-old female past medical history significant for anxiety, hypothyroidism, obesity and tobacco dependence, presents the ED with complaints of Review of Systems: Review of Systems: Constitutional: Denies fever or chills Eyes: Denies change in visual acuity HENT: Denies nasal congestion or sore throat Respiratory: Denies cough or shortness of breath Cardiovascular: Denies chest pain or edema GI: Denies abdominal pain, nausea, vomiting, bloody stools or diarrhea : Denies dysuria Musculoskeletal: Denies back pain or joint pain Integument: Denies rash Neurologic: Denies headache, focal weakness or sensory changes Endocrine: Denies polyuria or polydipsia Lymphatic: Denies swollen glands Psychiatric: Denies depression or anxiety Allergies: Allergies: Allergies Coded Allergies Type Severity Reaction Last Updated Verified No Known Drug Allergies 07/12/20 No Physical Exam: PE: Constitutional: Well developed, well nourished, no acute distress, non-toxic appearance. HENT: Normocephalic, atraumatic, Eyes: EOMI, conjunctiva normal, no discharge. Neck: Normal range of motion, supple, Cardiovascular: S1/2 present, regular rhythm Lungs & Thorax: Speaking in full sentences, bilateral equal chest rise, no tachypnea or increased work of breathing Abdomen: soft, no tenderness, Skin: Warm, dry, no erythema, no rash. [] Back: No tenderness, no CVA tenderness. [] Extremities: No tenderness, no cyanosis, no lower extremity edema Neurologic: Alert and oriented X 3, normal motor function, normal sensory function, no focal deficits noted. [] Psychologic: Affect normal, judgement normal, mood normal. [] Current Patient Data: Labs: Laboratory Tests Test 07/12/20 09:22 07/12/20 09:25 White Blood Count 6.5 x10^3/uL (4.0-11.0) Red Blood Count 4.43 x10^6/uL (3.50-5.40) Hemoglobin 13.5 g/dL (12.0-15.5) Hematocrit 40.3 % (36.0-47.0) Mean Corpuscular Volume 91 fL (79-100) Mean Corpuscular Hemoglobin 30 pg (25-35) Mean Corpuscular Hemoglobin Concent 34 g/dL (31-37) Red Cell Distribution Width 13.6 % (11.5-14.5) Platelet Count 218 x10^3/uL (140-400) Neutrophils (%) (Auto) 52 % (31-73) Lymphocytes (%) (Auto) 38 % (24-48) Monocytes (%) (Auto) 6 % (0-9) Eosinophils (%) (Auto) 3 % (0-3) Basophils (%) (Auto) 1 % (0-3) Neutrophils # (Auto) 3.4 x10^3uL (1.8-7.7) Lymphocytes # (Auto) 2.5 x10^3/uL (1.0-4.8) Monocytes # (Auto) 0.4 x10^3/uL (0.0-1.1) Eosinophils # (Auto) 0.2 x10^3/uL (0.0-0.7) Basophils # (Auto) 0.0 x10^3/uL (0.0-0.2) Sodium Level 140 mmol/L (136-145) Potassium Level 4.6 mmol/L (3.5-5.1) Chloride Level 105 mmol/L (98-107) Carbon Dioxide Level 24 mmol/L (21-32) Anion Gap 11 (6-14) Blood Urea Nitrogen 19 mg/dL (7-20) Creatinine 0.7 mg/dL (0.6-1.0) Estimated GFR (Cockcroft-Gault) 93.6 BUN/Creatinine Ratio 27 (6-20) H Glucose Level 101 mg/dL (70-99) H Calcium Level 8.7 mg/dL (8.5-10.1) Magnesium Level 1.9 mg/dL (1.8-2.4) Total Bilirubin 0.2 mg/dL (0.2-1.0) Aspartate Amino Transferase (AST) 15 U/L (15-37) Alanine Aminotransferase (ALT) 22 U/L (14-59) Alkaline Phosphatase 63 U/L (46-116) Creatine Kinase 81 U/L (26-192) Troponin I Quantitative < 0.017 ng/mL (0-0.055) Total Protein 6.8 g/dL (6.4-8.2) Albumin 3.6 g/dL (3.4-5.0) Albumin/Globulin Ratio 1.1 (1.0-1.7) Serum Test, Qualitative Negative (NEG) Heterophil Agglutinins Negative (NEGATIVE) Urine Collection Type Unknown Urine Color Yellow Urine Clarity Hazy Urine pH 5.5 Urine Specific [place] >=1.030 Urine Protein Neg (NEG-TRACE) Urine Glucose (UA) Neg mg/dL (NEG) Urine Ketones (Stick) Neg mg/dL (NEG) Urine Blood Trace (NEG) Urine Nitrite Neg (NEG) Urine Bilirubin Neg (NEG) Urine Urobilinogen Dipstick 0.2 mg/dL (0.2 mg/dL) Urine Leukocyte Esterase Neg (NEG) Urine RBC 1-2 /HPF (0-2) Urine WBC 1-4 /HPF (0-4) Urine Squamous Epithelial Cells Mod /LPF Urine Bacteria Mod /HPF (0-FEW) Urine Mucus Slight /LPF Urine Yeast Present /HPF Urine Opiates Screen Neg (NEG) Urine Methadone Screen Neg (NEG) Urine Barbiturates Neg (NEG) Urine Phencyclidine Screen Neg (NEG) Urine Amphetamine/Methamphetamine Neg (NEG) Urine Benzodiazepines Screen Pos (NEG) Urine Cocaine Screen Neg (NEG) Urine Cannabinoids Screen Pos (NEG) Urine Ethyl Alcohol Neg (NEG) Vital Signs: Vital Signs Date Time Temp Pulse Resp B/P (MAP) Pulse Ox O2 Delivery O2 Flow Rate FiO2 07/12/20 11:47 64 16 143/76 (98) 95 Room Air 07/12/20 09:12 98.5 EKG: EKG: Sinus rhythm 82 bpm, no axis deviation, T wave inversion lead III, normal intervals, no ST elevations or ST depressions, no active chest pain Radiology/Procedures: Radiology/Procedures: IMAGING REPORT Signed PATIENT: MARIA ANTONIA RUVALCABA ACCOUNT: [id number] : 1980 LOCATION: ER AGE: 40 SEX: F EXAM STATUS: REG ER ORD. PHYSICIAN: NIKA CARTER DO REASON: DIZZY, BLURRED VISION X 1 WEEK PROCEDURE: CT HEAD WO CONTRAST EXAM: Head CT without contrast; orbital CT without contrast. HISTORY: Dizziness. Blurred vision. TECHNIQUE: Computed tomographic images of the head and orbits were obtained without contrast. *One or more of the following individualized dose reduction techniques were utilized for this examination: 1. Automated exposure control. 2. Adjustment of the mA and/or kV according to patient size. 3. Use of iterative reconstruction technique. COMPARISON: None. FINDINGS: There is no acute or subacute extra-axial or intraparenchymal hemorrhage. There is no mass effect or midline shift. There is no hydrocephalus. The torres-white matter differentiation pattern is intact. The calvarium is unremarkable. The mastoid air cells are clear. The orbits are unremarkable. There is mild bilateral maxillary sinus mucosal thickening. There is slight attenuation of the left ostiomeatal unit. There is rightward nasal septal deviation. IMPRESSION: 1. No acute intracranial finding. 2. Unremarkable orbital CT. Electronically signed by: Poornima Bernal MD (07/12/2020 10:29 AM) [id number] DICTATED AND SIGNED BY: POORNIMA BERNAL MD DATE: 07/12/20 1027 CC: PCP,NO; NIKA CARTER DO ~MTH0 0 IMAGING REPORT Signed PATIENT: MARIA ANTONIA RUVALCABA ACCOUNT: [id number] : 1980 LOCATION: ER AGE: 40 SEX: F EXAM STATUS: REG ER ORD. PHYSICIAN: NIKA CARTER DO REASON: dizzy PROCEDURE: PORTABLE CHEST 1V EXAM: CHEST 1 VIEW History: Dizziness COMPARISON: 09/01/2017 TECHNIQUE: Single portable radiograph of the chest FINDINGS: The cardiac silhouette is unremarkable. The lungs are clear bilaterally. The costophrenic sulci are clear and well demarcated. . IMPRESSION: No radiographic evidence of an acute cardiopulmonary process. Electronically signed by: Richar Baez MD (07/12/2020 10:04 AM) [id number] DICTATED AND SIGNED BY: RICHAR BAEZ MD DATE: 07/12/20 1003 CC: PCP,NO; NIKA CARTER DO ~MTH0 0 Heart Score: Risk Factors: Risk Factors: DM, Current or recent (<one month) smoker, HTN, HLP, family history of CAD, obesity. Risk Scores: Score 0 - 3: 2.5% MACE over next 6 weeks - Discharge Home Score 4 - 6: 20.3% MACE over next 6 weeks - Admit for Clinical Observation Score 7 - 10: 72.7% MACE over next 6 weeks - Early Invasive Strategies Course & Med Decision Making: Course & Med Decision Making Pertinent Labs and Imaging studies reviewed. (See chart for details) Patient presents to the ED with multiple complaints, concern for hypertension, chronic vision changes and chronic fatigue. Troponin is negative. Urinalysis i s contaminated, will treat for UTI with Macrobid. Imaging unremarkable. No evidence of endorgan damage with normal renal function. Screen positive for marijuana, no cocaine. No ischemia on EKG. Will discharge home with strict ED return precautions were given for chest pain, difficulties breathing, neurologic deficit, SI/HI s or confusion. Encouraged urgent outpatient follow-up with PMD (for thyroid testing and blood pressure management-fatigue differential) and psychiatry (consider antidepressants). Life-threatening processes were considered but are low suspicion at this time, given history, physical exam and ED workup. Pt was educated on all prescription medications and adverse effects. All patient's questions were answered and pt was stable at time of discharge. Life/limb-threatening differential includes but is not limited to, end organ damage/sepsis, trauma/abuse/neglect, neurologic deficit, alcohol/drug ingestion, toxidrome, suicidal/homicidal ideations plans or attempts, psychosis or mental illness resulting in self neglect and inability to care for self. I spoken with the patient and her caregivers. I explained the patient's condition, diagnoses and treatment plan based on the information available to me at this time. I have answered the patient and her caregiver's questions and addressed any concerns. The patient and her caregivers have a good understanding of patient's diagnosis, condition and treatment plan as can be expected at this point. Vital signs have been stable. Patient's condition is stable and appropriate for discharge from the emergency department. Patient will pursue further outpatient evaluation with primary care physician or other designated or consulting physician as outlined in the discharge instructions. The patient and/or caregivers are agreeable to this plan of care and follow-up instructions have been explained in detail. The patient and/or caregivers have received these instructions in written form and have expressed an understanding of the discharge instructions. The patient and/or caregivers are aware that any significant change of condition or worsening of symptoms should prompt immediate return to this or the closest emergency department or call to [phone]. Arlen Disclaimer: Arlen Disclaimer: This electronic medical record was generated, in whole or in part, using a voice recognition dictation system. Departure Departure: Impression: Primary Impression: Asymptomatic hypertension Additional Impressions: UTI (urinary tract infection) Marijuana use Chronic fatigue Person under investigation for COVID-19 Disposition: 01 DC HOME SELF CARE/HOMELESS Condition: STABLE Referrals: PCP,KRYSTAL (PCP) to check TSH and consider antidepressants, repeat blood pressure FOLLOW UP WITH FAMILY MEDICINE: [facility] [address] [place] [address] [place] Patient Instructions: Fatigue, Hypertension, Urinary Tract Infection Additional Instructions: Return to ED immediately if your oxygen level drops below 90% (purchase a pulse oximetry at a medical supply store), difficulties breathing including rapid breathing or increased work of breathing (skin sucking under ribs), chest pain or stroke-like symptoms (facial droop, speech changes, arm/leg weakness). FOLLOW UP WITH PSYCHIATRY: [facility] [address], [address] [place] [address] [facility] [address] [place] [address] [facility] [address], [address] [place], [place] [id number] EMERGENCY DEPARTMENT GENERAL DISCHARGE INSTRUCTIONS Thank you for coming to [facility] (ED) today and trusting us with you care. We trust that you had a positivie experience in our Emergency Department. If you wish to speak to the department management, you may call the director at [phone]. YOUR FOLLOW UP INSTRUCTIONS ARE FOLLOWS: 1. Do you have a private Doctor? If you do not have a private doctor, please ask for a resource list of physicians or clinics that may be able to assist you with foll ow up care. 2. The Emergency Physician has interpreted your x-rays. The X-Ray specialist will also review them. If there is a change in the findings, you will be notified in 48 hours when at all possible. 3. A lab test or culture has been done, your results will be reviewed and you will be notified if you need a change in treatment. ADDITIONAL INSTRUCTIONS AND INFORMATION: 1. Your care today has been supervised by a physician who is specially trained in emergency care. Many problems require more than one evaluation for a complete diagnosis and treatment. We recommend that you schedule your follow up appointment as re commended to ensure complete treatment of you illness or injury. If you are unable to obtain follow up care and continue to have a problem, or if your condition worsens, we recommend that you return to the ED. 2. We are not able to safely determine your condition over the phone nor are we able to give sound medical advice over the phone. For these safety reasons, if you call for medical advice we will ask you to come to the ED for further evaluation. 3. If you have any questions regarding these discharge instructions please call the ED at [phone]. SAFETY INFORMATION: In the interest of safety, wellness, and injury prevention; we encourage you to wear your sealbelt, if you smoke; quite smoking, and we encourage family to use a protective helmet for bicycling and other sporting events that present an increased risk for head injury. IF YOUR SYMPTOMS WORSEN OR NEW SYMPTOMS DEVELOP, OR YOU HAVE CONCERNS ABOUT YOUR CONDITION; OR IF YOUR CONDITION WORSENS WHILE YOU ARE WAITING FOR YOUR FOLLOW UP APPOINTMENT; EITHER CONTACT YOUR PRIMARY CARE DOCTOR, THE PHYSICIAN WHOSE NAME AND NUMBER YOU WERE GIVEN, OR RETURN TO THE ED IMMEDIATELY. Scripts Nitrofurantoin Monohyd/M-Cryst (MACROBID 100 MG CAPSULE) 100 Mg Capsule 1 CAP PO BID for uti for 7 Days, #14 CAP 0 Refills Prov: NIKA CARTER DO 07/12/20 NIKA CARTER DO Jul 12, 2020 12:03
== END 2020-07-12 12:10 | disposition home or self-care (01) ==
LOC: ER 09:01
DX: N39.0 Urinary tract infection, site not specified (principal); Z20.822 Contact with and (suspected) exposure to COVID-19; I10 Essential (primary) hypertension; F12.90 Cannabis use, unspecified, uncomplicated; R53.82 Chronic fatigue, unspecified; F41.9 Anxiety disorder, unspecified; Z98.890 Other specified postprocedural states
CPT/HCPCS: 36415; 70450; 70480; 71045; 80053; 80307; 81001; 82550; 83735; 84484; 84703; 85025; 86308; 87086; 93005; 99285; C9803; U0003

== ENCOUNTER → 2020-12-31 | Outpatient (CLI) | payer OTHER ==
[~2020-12-31] MED LIST changes: +NITR100C62 PO
--- NOTE | 2020-12-31 17:37 | RAD ---
XR CHEST 2V Technique: PA and lateral views of the chest were obtained. Clinical History: Reason: SHORT OF BREATH, CONGESTION, BRONCHITIS / Spl. Instructions: / History: Comparison: None. Findings: The heart and pulmonary vasculature appear within normal limits. The lungs are clear. The pleural ma rgins are clear. Impression: No acute chest process is seen. Electronically signed by: Prashant Cadena III, MD (12/31/2020 5:35 PM) [facility]
== END ==
LOC: RAD 17:13
PROVIDERS: ATTEND Physician Assistant
DX: J40 Bronchitis, not specified as acute or chronic (principal); R06.02 Shortness of breath; R09.89 Other specified symptoms and signs involving the circulatory and respiratory systems
CPT/HCPCS: 71046

== ENCOUNTER 2021-09-22 16:15 | Emergency (ER) | payer OTHER ==
[~2021-09-22] VITALS: Ht 152.4 cm; Wt 78.5 kg
[2021-09-22] MEDS ORDERED: MECLIZINE 12.5 MG TABLET. PO ONE (16:45)
[2021-09-22] MEDS ORDERED: IV NORMAL SALINE 1,000ML 1,000 ML IV ONE (16:45)
--- NOTE | 2021-09-22 16:47 | PHYS DOC ---
Past History Past Medical History: Anxiety, Hypertension, Other Additional Past Medical Histor: ENLARGED HEART Past Surgical History: , Other Additional Past Surgical Histo: D&C Smoking: Non-smoker Alcohol Use: Occasionally Drug Use: Marijuana General Adult EDM: Chief Complaint: DIZZY/LIGHT HEADED HPI: HPI: Patient is a 41-year-old female who presents to the emergency department for multiple complaints. Patient reports that over the last 5 days she has been experiencing "shakiness". She states it feels like the room is spinning worse with position changes. She is also complaining of left-sided intermittent chest pain. The pain is relieved when she takes low rests and calms down. Patient does have a history of anxiety and does report increased anxiousness. She takes clonazepam. Patient is also reporting shortness of breath. She feels like a heaviness over her chest making it hard for her to breathe. Patient denies nausea, vomiting, fevers. She has a history of hypertension and takes losartan. Review of Systems: Review of Systems: Constitutional: See HPI Respiratory: See HPI Cardiovascular: See HPI GI: See HPI Neurologic: See HPI Psychiatric: See HPI Allergies: Allergies: Allergies Coded Allergies Type Severity Reaction Last Updated Verified No Known Drug Allergies 07/12/20 No Physical Exam: PE: Constitutional: Well developed, well nourished, no acute distress, non-toxic appearance. [] HENT: Normocephalic, atraumatic, bilateral external ears normal, oropharynx mo ist, no oral exudates, nose normal. [] Eyes: PERRL, 4 mm bilaterally, no horizontal nystagmus, EOMI, conjunctiva normal, no discharge. [] Neck: Normal range of motion, no tenderness, supple, no stridor. [] Cardiovascular:Heart rate regular rhythm, no murmur [] Lungs & Thorax: Bilateral breath sounds clear to auscultation [] Abdomen: Bowel sounds normal, soft, no tenderness, no masses, no pulsatile mas ses. [] Skin: Warm, dry, no erythema, no rash. [] Back: No tenderness, normal range of motion Extremities: No tenderness, no cyanosis, no clubbing, ROM intact, no edema. [] Neurologic: Alert and oriented X 3, normal motor function, normal sensory function, no focal deficits noted, normal speech, patient moving all 4 extremities equally, no limb ataxia, no pronator drift. [] Psychologic: Tearful and anxious appearing Current Patient Data: Labs: Laboratory Tests Test 09/22/21 16:54 White Blood Count 7.7 x10^3/uL Red Blood Count 4.44 x10^6/uL Hemoglobin 13.7 g/dL Hematocrit 40.7 % Mean Corpuscular Volume 92 fL Mean Corpuscular Hemoglobin 31 pg Mean Corpuscular Hemoglobin Concent 34 g/dL Red Cell Distribution Width 14.0 % Platelet Count 192 x10^3/uL Neutrophils (%) (Auto) 55 % Lymphocytes (%) (Auto) 38 % Monocytes (%) (Auto) 7 % Eosinophils (%) (Auto) 0 % Basophils (%) (Auto) 0 % Neutrophils # (Auto) 4.2 x10^3uL Lymphocytes # (Auto) 2.9 x10^3/uL Monocytes # (Auto) 0.5 x10^3/uL Eosinophils # (Auto) 0.0 x10^3/uL Basophils # (Auto) 0.0 x10^3/uL Sodium Level 139 mmol/L Potassium Level 3.3 mmol/L Chloride Level 105 mmol/L Carbon Dioxide Level 21 mmol/L Anion Gap 13 Blood Urea Nitrogen 13 mg/dL Creatinine 0.6 mg/dL Estimated GFR (Cockcroft-Gault) 111.3 BUN/Creatinine Ratio 22 Glucose Level 93 mg/dL Calcium Level 8.8 mg/dL Total Bilirubin 0.9 mg/dL Aspartate Amino Transf (AST/SGOT) 12 U/L Alanine Aminotransferase (ALT/SGPT) 23 U/L Alkaline Phosphatase 54 U/L Troponin I High Sensitivity 7 ng/L Total Protein 7.1 g/dL Albumin 4.1 g/dL Albumin/Globulin Ratio 1.4 Current Medications Medications (Trade) Dose Ordered Sig/Billy Route PRN Reason Start Time Stop Time Status Last Admin Dose Admin Sodium Chloride 1,000 ml @ 1,000 mls/hr 1X ONCE IV 09/22/21 16:45 09/22/21 17:44 DC 09/22/21 16:45 Meclizine HCl (Antivert) 25 mg 1X ONCE PO 09/22/21 16:45 09/22/21 17:12 DC 09/22/21 16:45 Lorazepam (Ativan Inj) 1 mg 1X ONCE IVP 09/22/21 16:45 09/22/21 17:12 DC 09/22/21 17:17 Potassium Chloride (Klor-Con) 20 meq 1X ONCE PO 09/22/21 17:45 09/22/21 17:49 DC 09/22/21 17:45 Vital Signs: Vital Signs Date Time Temp Pulse Resp B/P (MAP) Pulse Ox O2 Delivery O2 Flow Rate FiO2 09/22/21 16:20 98.4 92 16 181/87 (118) 100 Room Air EKG: EKG: [] EKG performed by ER staff at 1648 shows sinus rhythm with a rate of 71, no STEMI read by Dr. Herr Radiology/Procedures: Radiology/Procedures: []ROCEDURE: CT HEAD WO CONTRAST Exam Date: 09/22/2021 4:[address] HEAD/BRAIN WO Indication: Reason: near syncope, dizziness / Spl. Instructions: / History: . TECHNIQUE: Head CT was performed without intravenous contrast. One or more of the following dose reduction techniques were utilized: *Automated exposure control (AEC) *Adjustment of mA and/or kV according to patient size *Use of iterative reconstruction technique *CT scan done according to ALARA, or ALARA/IMAGE GENTLY FINDINGS: The ventricles and sulci are normal for the patient's stated age. There is no evidence of acute intracranial hemorrhage, extra-axial collection, mass effect, midline shift, or acute territorial infarct. No lesion of the skull base or the calvarium is seen. The visualized paranasal sinuses, mastoid air cells and orbits are normal in appearance. IMPRESSION: No evidence for acute intracranial abnormality. Electronically signed by: Josh Noguera MD (09/22/2021 5:15 PM) [id number] DICTATED AND SIGNED BY: JOSH NOGUERA MD DATE: 09/22/211711 CC: EMERGENCY,DEPARTMENT; RADHA EDMOND BANK CLERK; PCP,NO ~ PROCEDURE: PORTABLE CHEST 1V Exam Date: 09/22/2021 4:55 PM XR CHEST 1V Indication: Reason: chest pain, soa / Spl. Instructions: / History: . Comparison: December 31, 2020 FINDINGS/ IMPRESSION: The cardiac silhouette and pulmonary vasculature are within normal limits. There is no focal consolidation, pleural effusion or pneumothorax. The visualized osseous structures are intact. Electronically signed by: Josh Noguera MD (09/22/2021 5:16 PM) [id number] DICTATED AND SIGNED BY: JOSH NOGUERA MD DATE: 09/22/21 5926 CC: EMERGENCY,DEPARTMENT; RADHA EDMOND APRN; PCP,NO ~ Heart Score: C/O Chest Pain: Yes HEART Score for Chest Pain: HEART Score for Chest Pain Response (Comments) Value History Slighlty/Non-Suspicious 0 ECG Normal 0 Age < 45 0 Risk Factors 1 or 2 Risk Factors 1 Troponin < Normal Limit 0 Total 1 Risk Factors: Risk Factors: DM, Current or recent (<one month) smoker, HTN, HLP, family history of CAD, obesity. Risk Scores: Score 0 - 3: 2.5% MACE over next 6 weeks - Discharge Home Score 4 - 6: 20.3% MACE over next 6 weeks - Admit for Clinical Observation Score 7 - 10: 72.7% MACE over next 6 weeks - Early Invasive Strategies Course & Med Decision Making: Course & Med Decision Making Pertinent Labs and Imaging studies reviewed. (See chart for details) [] Patient resents to the emergency department for multiple complaints. Patient is reporting left-sided chest pain that is intermittent and improved with slow breathing. Patient is visibly anxious that she is having tremors in her hands and is very tearful. Patient does report increased anxiousness. Therefore patient will be treated with an antianxiety medication. Patient is also reporting dizziness like the room is spinning worse when she changes positions. Patient is likely experiencing orthostatic hypotension and will treated with IV fluids never. Patient work-up includes blood work including troponin, EKG and chest x-ray due to complaints of chest pain and shortness of breath. Patient is very concerned that she may be experiencing a CVA due to her dizziness. Imaging was performed of her head that showed no acute findings. Patient's blood work was mostly unremarkable, her potassium was low and this was replaced in the ER. Patient negative troponin. Discussed patient's case with the resident physician and D-dimer was ordered which was negative. Urinalysis does show a urinary tract infection and patient be treated with an antibiotic. Patient will also be discharged home with Antivert. Following treatment in the emergency department with Antivert and IV fluids, patient reports that her dizziness has greatly improved. Patient ambulated in the emergency department with a steady gait unassisted. I discussed with patient all findings and diagnostic testing as well as the need to follow-up with PCP for further evaluation and treatment or return to the ER if any new or worsening symptoms. Strict return precautions were also discussed at length. Patient voiced understanding and agreement with the plan. Patient is hemodynamically stable at the time of disposition. Olimpiaon Disclaimer: Arlen Disclaimer: This electronic medical record was generated, in whole or in part, using a voice recognition dictation system. Departure Departure: Impression: Primary Impression: Vertigo Additional Impression: Urinary tract infection Qualified Codes: N30.00 - Acute cystitis without hematuria Disposition: HOME / SELF CARE / HOMELESS Condition: GOOD Referrals: PCP,NO (PCP) Patient Instructions: Urinary Tract Infection, Vertigo Additional Instructions: You are seen in the emergency department today for dizziness. You are likely experiencing vertigo. You are being discharged home with a medication called Antivert to help with the symptoms. Please increase your fluids. Slowly change positions. Your potassium was slightly low in the ER and this was replaced with supplementation. Please make sure that you are eating potassium rich foods like green leafy vegetables and bananas at home. Your urinalysis did show a urinary tract infection which will be treated with antibiotic. Please start and finish the antibiotic completely. Please follow-up with your primary care provider tomorrow regarding your ER visit. Return to the emergency department if you develop increased dizziness, syncope, chest pain, shortness of breath, high fevers refractory to treatment, intractable nausea or vomiting, poor coordination, speech changes, unilateral weakness or any new or worsening concerns. Scripts Cephalexin (KEFLEX) 500 Mg Capsule 1 CAP PO BID for uti for 7 Days, #14 CAP 0 Refills Prov: RADHA EDMOND APRN 09/22/21 Meclizine Hcl (MECLIZINE HCL) 25 Mg Tablet 1 TAB PO PRN TID for vertigo for 7 Days, #21 TAB 0 Refills Prov: RADHA EDMOND APRN 09/22/21 RADHA EDMOND APRN September 22, 2021 16:47
--- NOTE | 2021-09-22 17:17 | RAD ---
Exam Date: 09/22/2021 4:[address] HEAD/BRAIN WO Indication: Reason: near syncope, dizziness / Spl. Instructions: / History: . TECHNIQUE: Head CT was performed without intravenous contrast. One or more of the following dose re duction techniques were utilized: *Automated exposure control (AEC) *Adjustment of mA and/or kV according to patient size *Use of iterative reconstruction technique *CT scan done according to ALARA, or ALARA/IMAGE GENTLY FINDINGS: The ventricles and sulci are normal for the patient's stated age. There is no evidence of acute int racranial hemorrhage, extra-axial collection, mass effect, midline shift, or acute territorial infarc t. No lesion of the skull base or the calvarium is seen. The visualized paranasal sinuses, mastoid ai r cells and orbits are normal in appearance. IMPRESSION: No evidence for acute intracranial abnormality. Electronically signed by: Nilton Noguera MD (09/22/2021 5:15 PM) [id number]
--- NOTE | 2021-09-22 17:18 | RAD ---
Exam Date: 09/22/2021 4:55 PM XR CHEST 1V Indication: Reason: chest pain, soa / Spl. Instructions: / History: . Comparison: December 31, 2020 FINDINGS/ IMPRESSION: The cardiac silhouette and pulmonary vasculature are within normal limits. There is no focal consolidation, pleural effusion or pneumothorax. The visualized osseous structures are intact. Electronically signed by: Nilton Noguera MD (09/22/2021 5:16 PM) [id number]
[2021-09-22 17:29] LABS: BASO % 0 % (0-3); EOS % 0 % (0-3); HEMATOCRIT 40.7 % (36.0-47.0); HEMOGLOBIN 13.7 g/dL (12.0-15.5); LYMPH # 2.9 x10^3/uL (1.0-4.8); LYMPH % 38 % (24-48); MEAN CORPUSCULAR HEMOGLOBIN 31 pg (25-35); MEAN CORPUSCULAR HGB CONC 34 g/dL (31-37); MEAN CORPUSCULAR VOLUME 92 fL (79-100); MONO # 0.5 x10^3/uL (0.0-1.1); MONO % 7 % (0-9); NEUT # 4.2 x10^3uL (1.8-7.7); NEUT % 55 % (31-73); PLATELET COUNT 192 x10^3/uL (140-400); RED BLOOD COUNT 4.44 x10^6/uL (3.50-5.40); WHITE BLOOD COUNT 7.7 x10^3/uL (4.0-11.0)
[2021-09-22 17:32] LABS: CALCIUM 8.8 mg/dL (8.5-10.1); CREATININE 0.6 mg/dL (0.6-1.0); GFR 111.3; POTASSIUM 3.3 mmol/L (3.5-5.1)
[2021-09-22 17:36] LABS: ALBUMIN 4.1 g/dL (3.4-5.0); ALBUMIN/GLOBULIN RATIO 1.4 (1.0-1.7); TOTAL BILIRUBIN 0.9 mg/dL (0.2-1.0); TOTAL PROTEIN 7.1 g/dL (6.4-8.2)
[2021-09-22] MEDS ORDERED: POTASSIUM CHLORIDE 20 MEQ TABLET.ER. PO ONE (17:45)
[2021-09-22 18:11] LABS: BACTERIA,URINE MOD /HPF (0-FEW); CLARITY,URINE HAZY; COLOR,URINE YELLOW; GLUCOSE,URINE NEG (NEG); NITRITE,URINE NEG (NEG); UROBILINOGEN,URINE 0.2 mg/dL (0.2 mg/dL)
[2021-09-22 18:12] LABS: SQUAMOUS EPITHELIAL CELL,UR MANY /LPF
[2021-09-22 20:00] VITALS: BP 160/92
[2021-09-22] MEDS ORDERED: CEPH500C PO (20:09)
[2021-09-22] MEDS ORDERED: MECL-75 PO (20:09)
== END 2021-09-22 20:25 | disposition home or self-care (01) ==
LOC: ER 16:15
DX: N30.00 Acute cystitis without hematuria (principal); R42 Dizziness and giddiness; F41.9 Anxiety disorder, unspecified; I10 Essential (primary) hypertension
CPT/HCPCS: 36415; 70450; 71045; 80053; 81001; 84484; 85025; 85379; 87077; 87086; 87186; 93005; 96361; 96374; 99285; J2060; J7030